=== PATIENT | female | born 2000 | race Caucasian/White ===

== ENCOUNTER 2018-11-08 00:36 | Emergency (ER) | payer BC ==
[~2018-11-08] VITALS: Ht 162.6 cm; Wt 57.2 kg
[2018-11-08 00:42] VITALS: Ht 162.6 cm; Wt 57.2 kg
[2018-11-08 02:04] VITALS: BP 122/70
== END 2018-11-08 02:04 | disposition home or self-care (01) ==
LOC: ED 00:36
DX: G44.209 Tension-type headache, unspecified, not intractable (principal)
CPT/HCPCS: J0780; J1885